=== PATIENT | male | born 1995 | race Caucasian/White ===

== ENCOUNTER 2018-03-08 12:20 | Emergency (ER) | payer SELFPAY ==
[~2018-03-08] VITALS: Ht 175.3 cm; Wt 93.2 kg
[2018-03-08 14:26] VITALS: BP 138/79
== END 2018-03-08 14:30 | disposition home or self-care (01) ==
LOC: EMS 12:21
DX: K04.7 Periapical abscess without sinus (principal); S01.01XD Laceration without foreign body of scalp, subsequent encounter; R03.0 Elevated blood-pressure reading, without diagnosis of hypertension; W22.8XXD Striking against or struck by other objects, subsequent encounter

== ENCOUNTER 2018-10-20 18:40 | Emergency (ER) | payer MEDICAID ==
[~2018-10-20] VITALS: Ht 175.3 cm; Wt 95.5 kg
[2018-10-20] MEDS ORDERED: AZITHROMYCIN 250 MG TABLET PO ONE (20:15)
[2018-10-20] MEDS ORDERED: CefTRIAXone SODIUM 1 GM/VIAL IM ONE (20:15)
[2018-10-20 22:00] VITALS: BP 129/85
== END 2018-10-20 22:00 | disposition home or self-care (01) ==
LOC: EMS 18:41
DX: R36.9 Urethral discharge, unspecified (principal); R30.0 Dysuria; F17.210 Nicotine dependence, cigarettes, uncomplicated; F12.90 Cannabis use, unspecified, uncomplicated

== ENCOUNTER 2019-03-11 16:00 | Emergency (ER) | payer MEDICAID ==
[~2019-03-11] VITALS: Ht 175.3 cm; Wt 93.2 kg
[2019-03-11] MEDS ORDERED: HYDROCODONE/ACETAMINOPHEN 5-325 MG TABLET PO ONE (17:30)
[2019-03-11 17:57] VITALS: BP 124/67
== END 2019-03-11 18:23 | disposition home or self-care (01) ==
LOC: EMS 16:02
DX: S93.401A Sprain of unspecified ligament of right ankle, initial encounter (principal); F17.210 Nicotine dependence, cigarettes, uncomplicated; F12.90 Cannabis use, unspecified, uncomplicated; X58.XXXA Exposure to other specified factors, initial encounter; Y93.51 Activity, roller skating (inline) and skateboarding; Y92.89 Other specified places as the place of occurrence of the external cause; Y99.8 Other external cause status

== ENCOUNTER 2020-10-18 21:56 | Emergency (ER) | payer MEDICAID ==
[~2020-10-18] VITALS: Ht 175.3 cm; Wt 100.0 kg
[2020-10-18 22:27] VITALS: BP 138/98
== END 2020-10-19 02:08 | disposition left against medical advice (07) ==
LOC: EMS 21:56
DX: R22.0 Localized swelling, mass and lump, head (principal); Z53.21 Procedure and treatment not carried out due to patient leaving prior to being seen by health care provider